=== PATIENT | female | born 1975 | race Caucasian/White ===

== ENCOUNTER 2020-04-21 22:20 | Emergency (ER) | payer OTHER ==
[~2020-04-21 22:20] MED LIST: TOPROL XL 25MG25 MG PO
[2020-04-21 23:02] LABS: BASOPHIL 0.9 % (0-2); EOSINOPHIL 2.5 % (0-5); HCT 50.6 % (37.0-47.0); HGB 16.2 g/dl (12.5-16.0); LYMPHOCYTE 37.8 % (15-48); MCV 96.7 fL (78.0-100.0); MONOCYTE 6.3 % (0-12); MPV 11.4 fL (6.0-9.5); NEUTROPHIL 52.3 % (41-80); NRBC 0; PLT 346 K/uL (150-400); RBC 5.23 M/uL (4.20-5.40); RDW 12.9 % (11.5-14.0); WBC 10.2 K/uL (4.0-10.5)
[2020-04-21 23:06] LABS: INR 0.97 (0.9-1.2); PROTHROMBIN TIME 12.2 SECONDS (11.4-13.6)
[2020-04-21 23:07] LABS: PTT 33.4 SECONDS (22.2-34.7)
[2020-04-21 23:08] LABS: D-DIMER < 0.27 ug/mLFEU (0.00-0.41)
[2020-04-21 23:16] LABS: BILIRUBIN NEGATIVE (NEGATIVE); BLOOD TRACE-INTACT Ery/uL (NEGATIVE); CLARITY CLEAR (CLEAR); COLOR YELLOW (YELLOW); GLUCOSE (U) NORMAL (NORMAL); LEUKOCYTES NEGATIVE Leu/uL (NEGATIVE); NITRITE NEGATIVE (NEGATIVE); PROTEIN NEGATIVE (NEGATIVE); SPECIFIC GRAVITY <=1.005 (1.001-1.030); UROBILINOGEN 0.2 mg/dL (0.2-1.0); pH 7.5 (5.0-9.0)
[2020-04-21 23:19] LABS: PRO-BNP 60 pg/mL (<125)
[2020-04-21 23:24] LABS: ALBUMIN 4.2 g/dL (3.4-5.0); BILIRUBIN - TOTAL 0.4 mg/dL (0.2-1.0); CREATININE 0.74 mg/dL (0.51-0.95); FT4 (FREE T4) 1.1 ng/dL (0.76-1.46); GLOBULIN (CALCULATION) 3.8 g/dL; POTASSIUM 3.2 mmol/L (3.5-5.1)
[2020-04-21 23:25] LABS: SQUAMOUS EPITHELIAL CELLS RARE; URINARY RBC RARE
== END 2020-04-22 02:04 | disposition home or self-care (01) ==
LOC: FER 22:20
PROVIDERS: Emergency Medicine Emergency Medical Services
DX: I47.1 Supraventricular tachycardia (principal); R07.89 Other chest pain; I48.91 Unspecified atrial fibrillation; Z98.890 Other specified postprocedural states; Z88.0 Allergy status to penicillin; Z88.5 Allergy status to narcotic agent
CPT/HCPCS: 36415; 71045; 80053; 81001; 83880; 84439; 84443; 84484; 85025; 85379; 85610; 85730; 93005; J7040